=== PATIENT | female | born 1960 | race Caucasian/White ===

== ENCOUNTER 2018-09-11 12:01 | Observation (INO) ==
[2018-09-11] MEDS ORDERED: SALINE LOCK IV FLUID XX ONE (13:33)
[2018-09-11] MEDS ORDERED: ZOFRAN IV PRN (13:33)
[2018-09-11] MEDS ORDERED: TYLENOL PO PRN (13:33)
[2018-09-11] MEDS ORDERED: NITROGLYCERIN TOP ONE (13:33)
[2018-09-11] MEDS ORDERED: NITROGLYCERIN SL PRN (13:38)
[2018-09-11] MEDS ORDERED: NORCO-7.5 PO PRN (13:38)
[2018-09-11] MEDS ORDERED: PHENERGAN PO PRN (13:38)
--- NOTE | 2018-09-11 13:55 | EKG Report ---
Test Performed on : 09/11/2018 1:45:00 PM Test Reason : cp Blood Pressure : / mmHG Vent. Rate : 068 BPM Atrial Rate : 068 BPM P-R Int : 138 ms QRS Dur : 084 ms QT Int : 386 ms P-R-T Axes : 068 075 053 degrees QTc Int : 410 ms Normal sinus rhythm. Possible Left atrial enlargement Borderline ECG When compared with ECG of 13-OCT-2009 06:21, No significant change was found Confirmed by Santi LINARES, Matthew Martin ([id number]) on 09/14/2018 9:27:39 AM
[2018-09-11 14:17] LABS: BASO# 0.04 X1000 (0.0-0.2); BASO% 0.6 % (0.0-0.8); EOS# 0.27 X1000 (0.0-0.7); HEMATOCRIT 36.7 % (37.0-47.0); HEMOGLOBIN 12.1 g/dL (12.0-16.0); LYMPH# 2.24 X1000 (1.2-3.4); LYMPH% 32.9 % (20.5-51.1); MCH 29.2 PG (27-31); MCV 88.4 FL (81-99); MONO% 7.3 % (1.7-9.3); MPV 11.3 FL (7.4-10.4); NEUT# 3.76 X1000 (1.4-6.5); NEUT% 55.2 % (42.2-75.2); PLT 193 X1000 (130-400); RBC 4.15 XMIL (4.2-5.4); RDW 13.2 % (11.5-14.5); WBC 6.81 X1000 (4.8-10.8)
[2018-09-11 14:18] LABS: INR 0.95; PROTIME 13.5 Seconds (11.0-16.0)
[2018-09-11 14:28] LABS: AGAP 6; ALB/GLOB RATIO 1.4; ALKALINE PHOSPHATASE 92 U/L (32-104); BUN 14 mg/dL (8-22); CALCIUM 9.3 mg/dL (8.8-10.2); CHLORIDE 106 mmol/L (98-107); COSMO 283; CREATININE 0.7 mg/dL (0.5-0.9); ESTIMATED GFR > 60; GLUCOSE 96 mg/dL (70-104); GOT 13 U/L (10-30); GPT 10 U/L (10-36); POTASSIUM 4.2 mmol/L (3.5-5.1); SODIUM 142 mmol/L (136-145); TCO2 30 mmol/L (25-35); TOTAL BILIRUBIN 0.25 mg/dL (0.20-1.00); TOTAL PROTEIN 6.8 g/dL (6.3-8.3)
[2018-09-11 14:38] LABS: CHOLESTEROL 139 mg/dL (0-200); CK PROFILE 38 U/L (24-173); HDL 50 mg/dL (45-65); LDL 60 mg/dL; TRIGLYCERIDES 146 mg/dL (35-135); VLDL 29 mg/dL
--- NOTE | 2018-09-11 15:29 | Diag Imaging Result Doc PS360 ---
EXAM: CHEST-2 VIEWS 09/11/2018 HISTORY: Chest Pain TECHNIQUE: PA and lateral chest COMMENT: There is no evidence of acute cardiac or pulmonary disease. No previous studies are available for comparison. IMPRESSION: No evidence of acute disease. Electronically signed by Collin Quintana 09/11/2018 3:26 PM
[2018-09-11] MEDS ORDERED: XANAX PO PRN (18:32)
[2018-09-11] MEDS ORDERED: RESTORIL PO PRN (18:33)
[2018-09-11] MEDS ORDERED: DESYREL PO SCH (21:00)
--- NOTE | 2018-09-12 01:24 | HISTORY AND PHYSICAL ---
CHIEF COMPLAINT: Mid upper chest to left upper chest pain and pressure with associated dyspnea on exertion and fatigue. HISTORY OF PRESENT ILLNESS: The patient is a 58-year-old white female who has a history of CAD with stenting. The patient is followed by Cardiology and had Lexiscan nuclear stress test which was negative around less than a year ago. She is followed by Dr. Pang. She comes in, complained of some pressure-type sensation left mid upper chest area, not particularly exertional but is associated with some dyspnea on exertion especially with taking a shower. She feels out of breath and extremely fatigued. She had tried some nitroglycerin sublingual and that did not seem to help her symptoms. Symptoms have been present over the past week. She has a history of about 3 weeks of right neck pain and has a longstanding history of cervical degenerative disk disease and was having some difficulty into the right low back as well and has been treated recently with some ibuprofen on about 5 to 6 occasions and some Robaxin and she has been applying heat and ice and that has seemed to calm down. Patient does admit to some anxiety concerning her heart disease. MEDICATIONS: Prior to admission are trazodone 100 mg p.o. at bedtime, Plavix 75 mg p.o. daily, Lipitor 40 mg p.o. at bedtime, aspirin 81 mg p.o. daily, folic acid 1 mg p.o. daily, nitroglycerin 0.4 mg sublingual q.5 minutes x3 p.r.n. chest pain, AcipHex 20 mg p.o. daily, Co Q10 1 p.o. daily. She is off Synthroid. ALLERGIES: NKDA. PAST MEDICAL HISTORY: 1. History of carotid stenosis status post right CEA in October 2004 and left CEA 2008. Has been evaluated recently by Dr. Stockton for bilateral carotid stenosis with good report back April 2018 and is to follow up with repeat carotid ultrasounds in 1 year. 2. Coronary artery disease with history of stents x2. 3. Depression and generalized anxiety disorder. 4. Osteoarthritis. 5. Diet-controlled type 2 diabetes mellitus. 6. Hypothyroidism. Patient off Synthroid with normal TFTs done 05/04/2018. 7. Hyperlipidemia. 8. Gastroesophageal reflux disease. 9. Chronic neck and low back pain. 10. Folic acid deficiency. 11. Chronic insomnia. PAST SURGICAL HISTORY: 1. BTL. 2. Hysterectomy. 3. Right CEA October 2004. 4. Left CEA 2008. 5. Lap Band surgery 2010. 6. Laparoscopic cholecystectomy March 2017. FAMILY HISTORY: Notable for NM in her maternal grandmother, paternal grandfather, maternal grandfather, mother at age 29. No cancer, strokes, hypertension in the family. Diabetes mellitus in paternal grandmother. SOCIAL HISTORY: The patient lives in [place]. She is . Has 2 children. Works at the [employer]. She quit smoking in 2004 and has about a 20 pack year history of smoking. Denies alcohol use. REVIEW OF SYSTEMS: As above. PHYSICAL EXAMINATION: VITAL SIGNS: Weight 136, height 5 feet 2 inches, blood pressure 109/64, pulse 72, O2 saturation on room air 98%. BMI 25. GENERAL: Thin, well-developed, well-nourished white female. SKIN: Mild thinning to the hair noted likely related to her prior Lap Band. No skin rashes. HEENT: NC/AT. JESSIE. EOMI. Sclerae clear. OP, no redness. Tongue in the midline. NECK: No LA, TMG, JVD. There is right carotid bruit mild. CARDIOVASCULAR: RRR. Cannot rule out very faint 1/6 murmur. LUNGS: CTA. BACK: NT. ABDOMEN: Soft, NT, ND. No mass. No HSM. Chest wall not particularly tender. BREASTS/PELVIC/RECTAL: Deferred. EXTREMITIES: No calf tenderness, cords or edema. Peripheral pulses 1 to 2+ over 4 lower extremities. NEUROLOGIC: Cranial nerves 2-12 are intact. No focal deficits. EKG: In the office shows sinus rhythm with right and left atrial abnormality, no acute ST changes. ASSESSMENT: 1. Chest pain, atypical, but associated with dyspnea on exertion and pronounced fatigue. 2. Known coronary artery disease. 3. Hyperlipidemia. 4. Remote smoker. 5. Remote obesity, now improved after Lap Band surgery 2010. 6. Cerebrovascular disease with prior right and left carotid endarterectomies. 7. Diet-controlled type 2 diabetes mellitus. 8. Depression with generalized anxiety disorder. 9. Prior history of hypothyroidism, off medication with normal TFTs recently. 10. Gastroesophageal reflux disease. 11. Chronic neck and low back pain. PLAN: We will admit the patient. Obtain serial cardiac enzymes, troponin levels. Continue her home medications, place nitroglycerin paste. We will consult Cardiology as they follow in her care. Place her on a healthy heart diet. Monitor on telemetry. Check chest x-ray, CBC, CMP, PT, PTT, and we will again ask Cardiology to see patient in consultation. Check direct lipid profile. cc: Masoud Dobson MD
--- NOTE | 2018-09-12 01:31 | ECHO REPORT ---
ORDER DATE: 09/11/2018 MEASUREMENTS: Left ventricular internal diameter in diastole 4.6, left ventricular internal diameter in systole 2.9, septal thickness 0.9, posterior wall thickness 0.9, aortic root 3.0, left atrium 3.4. SUMMARY: 1. Adequate quality study. 2. Aortic valve is trileaflet and opens normally on 2-dimensional images. Peak gradient across aortic valve is less than 10 mmHg. Mitral, tricuspid, and pulmonic valves are without evidence of structural abnormality with trace mitral regurgitation, mild tricuspid regurgitation, and trace pulmonic insufficiency. The estimated systolic PA pressure by Doppler is 25 mmHg. Aortic root is normal size. 3. Normal left ventricular dimensions demonstrated. Estimated left ventricular ejection fraction appears to be approximately 65%. No regional wall motion abnormalities are evident. Left atrium, right atrium, right ventricle are normal in size with normal right ventricular systolic function. 4. No pericardial effusion. 5. Appearance of inferior vena cava suggests normal central venous pressure. CONCLUSIONS: 1. Mild tricuspid regurgitation with normal systolic PA pressure by Doppler. 2. Normal left ventricular systolic function without wall motion abnormality evident. cc: MD Masoud Reyes MD
[2018-09-12] MEDS ORDERED: ACIPHEX PO SCH ×2 (07:00)
[2018-09-12] MEDS ORDERED: PRILOSEC PO SCH (07:00)
--- NOTE | 2018-09-12 08:41 | CARDIOLOGY CONSULTATION ---
DATE: 09/11/2018 CHIEF COMPLAINT: Chest pain. HISTORY OF PRESENT ILLNESS: Ms Knapp is a 58-year-old white female, who presented for episodes of chest tightness that were occurring what seems like with and without exertion over the last week or so. These would last for a few minutes at a time it seems like. She has had no recent changes in her medications that she is aware of. She has been compliant with her medications. She continues to smoke. PAST MEDICAL HISTORY: 1. Significant for coronary artery disease. Her last cardiac catheterization was performed in 2013. This demonstrated the left main had a 15 to 20 percent distal plaque. Left anterior descending had a proximal 70% lesion. The LAD gives rise to 2 diffusely diseased diagonal vessels are occluded from a previously stented segment. There are some collaterals filling those territories. The circumflex is a nondominant vessel. It appears to have a narrowing of about 30% proximally. The right coronary artery has a proximal stenosis on the order of 40%. There is a long diffusely diseased segment on the order of 40% in the mid to distal portion. LV-gram on that study demonstrated normal left ventricular function. The patient subsequently had an intervention performed in [place] to the left anterior descending with a drug- eluting stent. Her last nuclear scan was in June 2017 that demonstrated a tiny area of inducible ischemia of mild severity involving the mid anterior wall of the left ventricle, probably corresponds to a tiny diagonal branch. 2. Continued tobacco abuse. 3. Hyperlipidemia. 4. Peripheral vascular disease with carotid disease noted and previous left carotid endarterectomy and right carotid endarterectomy. 5. Hypothyroidism. 6. Hypertension. SOCIAL HISTORY: She continues to smoke. FAMILY HISTORY: Significant for hypertension. REVIEW OF SYSTEMS: A 10 system review of systems is negative except for those things mentioned in HPI. PHYSICAL EXAMINATION: She is afebrile, heart rate is 74, blood pressure 131/56.General: She is in no acute distress. HEENT: Oropharynx is moist. Normal dentition. Eye examination shows pink conjunctivae, white sclerae. Neck: Shows no obvious thyromegaly or thyroid tenderness. Cardiovascular: She sounds to be in a regular rate and rhythm. She has no obvious murmurs. She has no S3. She has no lower extremity edema. Chest: Clear bilaterally. She has no increased work of breathing. Abdomen: Soft, nontender, nondistended. She has no obvious organomegaly. Skin: Warm and dry throughout without any rashes. Neurological: She is moving all extremities well. No lateralizing deficits. PERTINENT DATA: Her EKG shows sinus rhythm. No obvious ischemic changes. LABORATORY DATA: Data demonstrates white count of 6.8, hematocrit 36, her platelet count is 193,000. Her sodium is 142, potassium 4.2, BUN 14, creatinine 0.7. Her cardiac enzymes are negative times multiple sets. Her LDL was checked today and demonstrates an LDL of 60. ASSESSMENT: Ms. Knapp is a 58-year-old female with known coronary artery disease who presents with chest pain concerning for possible angina. PLAN: She is not on any antianginal medications at this point. She was intolerant to nitroglycerin which was already administered. She is suppose to be on Toprol at home so I will initiate this at a dose of 25 mg per her previous ordered dose. In addition, I will try to put her on a small dose of amlodipine. We will continue to trend her enzymes. Further recommendations to follow. cc: MD Masoud Dominguez MD
[2018-09-12] MEDS ORDERED: NORVASC PO SCH (09:00)
[2018-09-12] MEDS ORDERED: ASPIRIN PO SCH (09:00)
[2018-09-12] MEDS ORDERED: TOPROL XL PO SCH (09:00)
[2018-09-12 11:56] VITALS: BP 98/40
[2018-09-12] MEDS ORDERED: FOLIC ACID PO SCH (21:00)
[2018-09-12] MEDS ORDERED: PLAVIX PO SCH (21:00)
[2018-09-12] MEDS ORDERED: LIPITOR PO SCH (21:00)
[2018-09-12] MEDS ORDERED: COENZYME Q10 PO SCH (21:00)
--- NOTE | 2018-09-13 11:45 | DISCHARGE SUMMARY ---
ADMISSION DATE: 09/11/2018 DISCHARGE DATE: 09/12/2018 FINAL DIAGNOSES: 1. Atypical chest pain. 2. Angina. 3. Coronary artery disease. 4. Carotid artery disease. 5. Hypercholesterolemia. 6. Generalized anxiety disorder. 7. Diabetes. 8. Hypothyroidism. 9. Chronic neck pain. 10. Gastroesophageal reflux disease. 11. Chronic insomnia. 12. Folic acid deficiency. DISCHARGE MEDICATIONS: Usual medications at home plus Xanax 0.25 mg (20) 1 q.8 hours p.r.n. anxiety, and Lane 7.5/325 (10) 1 q.6 hours p.r.n. pain. CONSULTATIONS: Christopher Queen, enrober tender. HISTORY OF PRESENT ILLNESS: This is the first recent [facility] admission for this 58-year- old, white female with known coronary artery disease who came in complaining of a pressure sensation in the mid upper chest area, not related to exertion. She tried some sublingual nitroglycerin and it did not seem to help. She complained with history of neck pain for 3 weeks and has known cervical degenerative disk disease. She has no numbness in her arms. She had taken some ibuprofen and Robaxin, also used ice and heat, which seemed to help some. She was admitted related to evaluation of heart disease. INITIAL LABORATORY: Hemoglobin 12.1, hematocrit 36.7, white blood count 6800 with normal differential. INR was 0.95. Complete metabolic profile revealed BUN 14, creatinine 0.7. Normal liver functions. Troponin was less than 0.01. CPK was 36. HOSPITAL COURSE: Subsequent enzymes were normal with troponin remaining less than 0.01. She has had less chest discomfort today. She has eaten fairly well and has been ambulatory. Dr. Queen placed her on Toprol and amlodipine. Blood pressure systolic this morning was 98. She states she felt a little weak. Amlodipine will be held. She is to continue Toprol at home along with nitroglycerin p.r.n., and is given the above medications to use as needed. She is to return to see Dr. Dobson next Friday in his office. cc: MD Masoud Rodriguez MD
== END 2018-09-12 14:10 | disposition home or self-care (01) ==
LOC: DIRADM → 3N 12:01
PROVIDERS: ADMIT Family Medicine; ATTEND Family Medicine
CPT/HCPCS: 71020; 71046; 80053; 80061; 82550; 84484; 85025; 85610; 85730; 93005; 93010; 93306; 94760; 94761; A9270; J2405